=== PATIENT | male | born 1985 | race Hispanic/Latino ===

== ENCOUNTER 2019-02-04 17:49 | Emergency (ER) | payer OTHER ==
[2019-02-04] MEDS ORDERED: METHYLPREDNISOLONE SOD SUCC 125MG/2ML VIAL ONE (18:27)
[2019-02-04] MEDS ORDERED: ACETAMINOPHEN 325 MG TAB ONE (18:27)
== END 2019-02-04 19:03 ==
LOC: EDBD 17:49 → EDH 17:49
DX: M10.9 Gout, unspecified (principal)
CPT/HCPCS: 96372; 99283; J2930